=== PATIENT | male | born 1945 | race Caucasian/White ===

== ENCOUNTER 2018-04-06 10:26 | Day surgery (SDC) | payer MEDICARE, OTHER ==
[~2018-04-06] VITALS: Ht 188 cm; Wt 132.7 kg
[2018-04-06] MEDS ORDERED: TAMS0.4C2 PO (11:03)
[2018-04-06] MEDS ORDERED: METOPROLOL PO (11:03)
[2018-04-06] MEDS ORDERED: PANT40TA5 PO (11:03)
[2018-04-06] MEDS ORDERED: ALLO100T30 PO (11:03)
[2018-04-06] MEDS ORDERED: ALLERGY PILL PO (11:03)
[2018-04-06] MEDS ORDERED: ATOR40TA78 PO (11:03)
[2018-04-06] MEDS ORDERED: ASPIRIN PO (11:03)
[2018-04-06] MEDS ORDERED: VERA120T5 PO (11:03)
[2018-04-06] MEDS ORDERED: LACTATED RINGERS 1,000 ML IV SCH (11:05)
[2018-04-06 11:11] VITALS: BP 164/80
[2018-04-06] MEDS ORDERED: LIDOCAINE-MPF 1%, 2ML INFIL ONE (11:30)
[2018-04-06] MEDS ORDERED: PLEASE ENTER HEIGHT AND WEIGHT MC SCH (11:30)
[2018-04-06] MEDS ORDERED: PROPOFOL 10 MG/ML, 20ML ONE (11:53)
[2018-04-06] MEDS ORDERED: MEPERIDINE/PF 25MG/0.5ML IVPush PRN (12:00)
[2018-04-06] MEDS ORDERED: OXYcodone 5 MG/5 ML ORAL.SOL UDC PO PRN (12:00)
[2018-04-06] MEDS ORDERED: ACETAMINOPHEN 325 MG TABLET PO PRN (12:00)
[2018-04-06] MEDS ORDERED: HYDROcodone/APAP 7.5-325MG/15ML UDC PO PRN (12:00)
[2018-04-06] MEDS ORDERED: ONDANSETRON ODT 8 MG PO PRN (12:00)
== END 2018-04-06 15:00 ==
LOC: OUT 10:26
PROVIDERS: ATTEND Internal Medicine
DX: K63.5 Polyp of colon (principal); K57.30 Diverticulosis of large intestine without perforation or abscess without bleeding; K21.9 Gastro-esophageal reflux disease without esophagitis; E78.5 Hyperlipidemia, unspecified; I10 Essential (primary) hypertension; E66.01 Morbid (severe) obesity due to excess calories; Z95.810 Presence of automatic (implantable) cardiac defibrillator; Z72.89 Other problems related to lifestyle
CPT/HCPCS: 45380; 45385; 88305; 93005; J2704; J7120